=== PATIENT | female | born 1970 | race Caucasian/White ===

== ENCOUNTER 2022-07-08 04:55 | Emergency (ER) | payer OTHER, SELFPAY ==
[2022-07-08 05:00] VITALS: BP 163/106; PULSE 84; RESP 16; TEMP 36.5; O2SAT 97; BMI 31.8
[2022-07-08 05:20] VITALS: BP 155/102; PULSE 92; RESP 16; O2SAT 97
[2022-07-08] MEDS: LORazepam 2 MG/ML inj 1 MG IM (05:35)
--- NOTE | 2022-07-08 05:59 | ED_ITS ---
HPI - General Adult General Chief complaint: Weakness Stated complaint: Numbness Time Seen by Provider: 07/08/22 04:57 History of Present Illness HPI narrative: 51-year-old woman noting her history of anxiety arrives via EMS with concern of numbness and tingling to both hands and feet and then to face and perioral; that is when she got particularly alarmed. I believe she thought she might have been having a stroke especially when she demonstrates how her hands seemed to be unable to move. She has been trying some deep breathing slower breathing exercises and has taken a dose of her Ativan about an hour prior to arrival. Does not recall breathing faster. She again acknowledges underlying anxiety but not usually panic attacks. She has been experiencing some weight loss unintentionally over some months. This all she feels began after 1 episode of coffee-ground emesis while she was out running errands with her daughter it sounds like. Has had continued epigastric pain since then. Does take a proton pump inhibitor. Has subsequently had per her report a normal upper GI other than noted hiatal hernia, and colonoscopy as well as abdomen and pelvis CT scan in the interim. She is also pending now a swallow study/bowel follow through of some sort as well as visit with nutrition in 2 days time. She has been drinking protein shakes. Again symptoms essentially faded now other than just a little tingliness in her feet. Related Data Home Medications Medication Instructions Recorded Confirmed baclofen 10 mg tablet 5 mg PO TID 07/08/22 07/08/22 hydroxyzine HCl 25 mg tablet 25 - 50 mg PO TID PRN anxiety 07/08/22 07/08/22 lorazepam 0.5 mg tablet 0.25 - 0.5 mg PO BID PRN anxiety 07/08/22 07/08/22 metoclopramide HCl 5 mg tablet 5 - 10 mg PO PRN nausea and 07/08/22 vomiting omeprazole 40 mg capsule,delayed 40 mg PO BID 07/08/22 07/08/22 release sumatriptan succinate 100 mg tablet mg PO 07/08/22 trazodone 100 mg tablet 100 mg PO .At HS 07/08/22 07/08/22 Allergies Allergy/AdvReac Type Severity Reaction Status Date / Time morphine Allergy Severe Anaphylaxis Verified 07/08/22 05:16 Opioids - Morphine Analogues Allergy Verified 07/21/22 11:55 acetaminophen [From Percocet] AdvReac Intermediate Chest Pain Verified 07/08/22 05:16 adhesive AdvReac Intermediate Rash Verified 07/08/22 04:57 clavulanic acid AdvReac Intermediate GI upset Verified 07/08/22 05:16 cyclobenzaprine AdvReac Intermediate myalgia Verified 07/08/22 05:16 [From Flexeril] iron AdvReac Intermediate GI upset Verified 07/08/22 05:16 latex AdvReac Intermediate rash Verified 07/08/22 05:16 oxycodone [From Percocet] AdvReac Intermediate Chest Pain Verified 07/08/22 05:16 pravastatin AdvReac Intermediate arthralgia Verified 07/08/22 05:16 prochlorperazine AdvReac Agitated Verified 07/08/22 05:16 [From Compazine] Review of Systems Status of ROS: Reports: 6 or more systems reviewed and unremarkable except as noted in History and below PFSH PFSH Medical History (Updated 07/21/22 @ 13:45 by Alexandria Keenan) Acute lateral meniscus tear of left knee Anxiety Atrophic vaginitis Chronic headaches DDD (degenerative disc disease), cervical Depression Enchondroma Hiatal hernia History of kidney stones Hyperlipidemia Hypertension Knee joint hypermobility Lumbar disc herniation Migraines CYNDY on CPAP Osteoarthritis Osteopenia Polyp of gallbladder PVCs (premature ventricular contractions) Urinary incontinence in female Vitamin D deficiency Surgical History (Updated 07/21/22 @ 13:14 by Alexandria Keenan) Bilateral cataracts H/O lithotripsy H/O right knee surgery H/O: hysterectomy History of bilateral carpal tunnel release History of cystoscopy History of salpingo-oophorectomy Hx of appendectomy Labral tear of right hip joint S/P ACL reconstruction Tumor surgically resectable Family History (Updated 07/21/22 @ 13:22 by Alexandria Keenan) Mother Cervical cancer Breast cancer Maternal Grandfather Acute leukemia Brother Osteoarthritis Maternal Grandmother Ovarian cancer Aunt Acute leukemia Breast cancer Alopecia Social History Smoking Status: Never smoker Do you use any of these nicotine containing products: None Second hand tobacco smoke exposure: No How often do you have a drink containing alcohol: never How often do you have six or more drinks on one occasion: Never AUDIT-C Alcohol total score: 0 Non-prescribed substance use: denies use service: No Exam Narrative: Exam Narrative: Pleasant. NAD. Mildly anxious. Does tear up just a little bit as we're talking. Breathing easily. Oropharynx a little sticky. Cranial nerves 2-12 look to be intact. She is moving all extremities without difficulty. Sensation appears to be intact. Well-perfused centrally and peripherally. Lungs are clear. Heart in a regular rate and rhythm. Blood pressure is little bit elevated I note. Abdomen is soft overweight and tender in the epigastrium. Const: Vital Signs, click to edit/add: Vital Signs - 24 hr 07/08/22 05:00 07/08/22 05:20 Temperature 97.7 F Pulse Rate [Pulse Oximeter] 84 92 Respiratory Rate 16 16 Blood Pressure [Le ft Upper Arm] 163/106 H 155/102 H Pulse Oximetry 97 97 Oxygen Delivery Me thod Room Air Documenting provider has reviewed patient's vital signs: yes Course Vital Signs Vital signs: Initial Vital Signs Temperature 97.7 F 07/08/22 05:00 Temperature Source Temporal Artery Scan 07/08/22 05:00 Pulse Rate 84 07/08/22 05:00 Respiratory Rate 16 07/08/22 05:00 Blood Pressure 163/106 H 07/08/22 05:00 Blood Pressure Mean 125 07/08/22 05:00 Pulse Oximetry 97 07/08/22 05:00 Oxygen Delivery Method 07/08/22 05:00 Vital Signs Temperature 97.7 F 07/08/22 05:00 Pulse Rate 84 07/08/22 05:00 Respiratory Rate 16 07/08/22 05:00 Blood Pressure 163/106 H 07/08/22 05:00 Pulse Oximetry 97 07/08/22 05:00 Oxygen Delivery Method 07/08/22 05:00 Temperature 97.7 F 07/08/22 05:00 Pulse Rate 71 07/08/22 06:04 Respiratory Rate 16 07/08/22 06:04 Blood Pressure 134/73 07/08/22 06:04 Pulse Oximetry 97 07/08/22 05:20 Oxygen Delivery Method 07/08/22 05:00 Medical Decision Making MDM Narrative Medical decision making narrative: I see no evidence of a cerebrovascular event here now. Given the distribution I think this really sounds like panic attack with results sent carpopedal spasm/sensory changes. She acknowledges that this might be the case. Is wondering if she gets something more for anxiety. I offered reassurance that has had extensive evaluation. Sounds as though would potentially be pending imaging of her head following hormone/thyroid studies that are pending yet today. If those are normal then it sounds like head imaging was suggested. It seemed to me that this was brought up here with question of whether not that might be possibly done. Unfortunately at this time of night/certified health education specialist we do not have adequate capabilities to do this. I think this though is also better done outpatient. Given IM lorazepam after discussion. Seemed overall reassured by our conversation. see patient discharge plan Medical Records Medical records reviewed: Yes I reviewed the patient's medical records Discharge Plan Discharge Clinical Impression: Unintentional weight loss, Panic attack Patient Disposition: Home w/ Parent or Adult Condition: Improved Instructions: Anxiety (ED) Additional Instructions: Sounds like you have had a rather thorough/thoughtful workup to date. I think meeting with chairman & ceo would be a good idea. Try to quantify everything you eat and drink in anticipation of that visit. I think it is good that you are trying meditative breathing. I would also continue with, in spite of the weight loss that you have been describing, daily heart pumping exercise. Try to get regular and quality sleep. Prescriptions: No Action sumatriptan succinate 100 mg tablet PO Label Comments: GIVE AT MINIMUM 2HRS APART. MAX DOSE 200MG PER 24HRS.TAKE ONE TABLET BY MOUTH EVERY 2 HOURS NEEDED FOR MIGRAINE. MAX DOSE OF TWO TABLETS omeprazole 40 mg capsule,delayed release(DR/EC) 40 mg PO BID Label Comments: TAKE 1 CAPSULE BY ORAL ROUTE 2 TIMES EVERY DAY lorazepam 0.5 mg tablet 0.25 - 0.5 mg PO BID PRN (Reason: anxiety) Label Comments: TAKE 0.5-1 TABLETS (0.25-0.5 MG) BY MOUTH 2 TIMES DAILY IF NEEDED FOR ANXIETY. metoclopramide HCl 5 mg tablet 5 - 10 mg PO PRN (Reason: nausea and vomiting) Label Comments: TAKE 1-2 TABLETS BY ORAL ROUTE 2-3 TIMES DAILY NEEDED FOR NAUSEA AND VOMITING trazodone 100 mg tablet 100 mg PO .At HS Label Comments: TAKE 1 TABLET (100 MG) BY MOUTH AT BEDTIME. hydroxyzine HCl 25 mg tablet 25 - 50 mg PO TID PRN (Reason: anxiety) Label Comments: TAKE 1-2 TABLETS (25-50 MG) BY MOUTH 3 TIMES DAILY IF NEEDED FOR ANXIETY. baclofen 10 mg tablet 5 mg PO TID Label Comments: TAKE 0.5 TABLETS (5 MG) BY MOUTH 3 TIMES DAILY. Stand Alone Forms: [employer] Info Instructions
[2022-07-08 06:04] VITALS: BP 134/73; PULSE 71; RESP 16
== END 2022-07-08 06:05 | disposition home or self-care (01) ==
LOC: ED 05:55
PROVIDERS: Emergency Provider Family Medicine; PCP Physician Assistant Medical
DX: F41.0 Panic disorder [episodic paroxysmal anxiety] (principal); R63.4 Abnormal weight loss
CPT/HCPCS: 96372; 99283; A0425; A0427; J2060

== ENCOUNTER 2022-08-05 12:36 | Outpatient (CLI) | payer OTHER, SELFPAY | END 2022-08-05 12:37 | disposition home or self-care (01) | LOC: LKVREF 12:38 | PROVIDERS: PCP Physician Assistant Medical; Visit Provider Emergency Medicine | DX: Z01.818 Encounter for other preprocedural examination (principal); I10 Essential (primary) hypertension; E55.9 Vitamin D deficiency, unspecified | CPT/HCPCS: 80048 ==